=== PATIENT | female | born 1945 | race Caucasian/White ===

== ENCOUNTER → 2016-10-21 | Outpatient (CLI) | payer MEDICARE, OTHER ==
[~2016-10-21] MED LIST: FENO134C PO; IOHEXOL 180 MG/ML 10 ML VIAL. ONE; SIMV20TA3 PO; methylPREDNISolone ACETATE 40 MG/ML VIAL. ONE; methylPREDNISolone ACETATE 80 MG/ML VIAL. ONE
--- NOTE | 2016-10-22 04:57 | PAIN ---
DATE OF SERVICE: 10/21/2016 INITIAL CONSULTATION FOR PAIN CLINIC CHIEF COMPLAINT: Low back and bilateral lower extremity pain. HISTORY OF PRESENT ILLNESS: This is a 71-year-old female who presents with history of pain at the low back and bilateral lower extremities, worse since the year 1999. She has had undergone a lumbar instrumentation and fusion in 2007 with good results initially, but the pain is returning now in the low back, bilateral lower extremities, mostly in the posterior aspect of the gluteus and thigh, essentially equal on the right and the left. The patient reports it is worse with standing, walking, activities, work in her garden, changing positions, standing on ladders. The patient reports it does not awaken her from sleep at night, though feels much better lying down, does not affect her bowel or bladder control, but does affect her ability to walk, is becoming more fatigability in the low back and lower extremities with walking. The patient reports the pain is stabbing and burning with radiating pain into the lower extremities again as noted. The patient has had physical therapy, which is ongoing at the present time as well as chiropractic treatment and always doing exercises on her own in gym as well as at home and outdoors when the weather is good. The patient has been taking tramadol, which does decrease the pain by about 20-30%. She has been taking this for several years. The patient had MRI scan showing arthritis. CT scan showing endplate sclerosis T11-T12 and T12-L1 with subluxation of T12 and L1, but also with L5-S1 progressive degenerative change and development of a 7-mm spondylolisthesis of L5 on S1 with moderate central canal stenosis and lateral recess narrowing at L5-S1 with severe right foraminal stenosis as well. The patient rates her disability rate from 0 to 10, 10 being the worst is a 5 with family and home responsibilities, 6 with recreation and social activities, 7 with occupation, 4 with self-care and 3 with life support activities. PAST MEDICAL HISTORY: Significant for cataract, colitis, skin cancers, gastroesophageal reflux, arthritis, osteoporosis, headaches. PAST SURGICAL HISTORY: Previous surgeries include spinal fusion in 2007, heel spur removed in the past, bilateral rotator cuff surgeries, malignant melanoma excised, bilateral carpal tunnel repair, small toe fracture surgery and a sinus surgery in the past. CURRENT MEDICATIONS: Include simvastatin and fenofibrate. ALLERGIES: THE PATIENT IS ALLERGIC TO VICODIN. FAMILY HISTORY: Significant for osteoarthritis, neuropathy, skin cancers and lumbar issues in patient's father and 4 other siblings. SOCIAL HISTORY: The patient drinks about one alcoholic drink twice a month. Does not smoke. Lives in [place], [place] in her own home. REVIEW OF SYSTEMS: The patient's review of systems is positive for those items mentioned in history of present illness. All systems were reviewed and otherwise negative. It is complete, full and well documented on the patient's chart. PHYSICAL EXAMINATION: VITAL SIGNS: The patient's blood pressure is 155/84, pulse 73, respirations are 18, temperature 98.0 degrees Fahrenheit, height is 5 feet 4 inches, weight is 163 pounds. GENERAL: The patient is awake, alert, oriented, appropriate, very pleasant demeanor. HEENT: Shows normocephalic, atraumatic. Extraocular movements are intact and symmetrical. Oral cavity shows mucous membranes are moist and pink. Dentition is intact. NECK: Shows anterior throat supple without palpable lymphadenopathy noted. Swallow reflex is symmetrical. Neck shows full rotational motion of the cervical spine without difficulty or tenderness. CHEST: Shows normal on inspection. Breath sounds are clear to auscultation bilaterally. HEART: Shows S1 and S2 clear. ABDOMEN: Soft, nontender, nondistended. No palpable organomegaly. No rebound or guarding demonstrated. BACK: The patient's back shows spine grossly midline. Normal appearing thoracic kyphosis. Lumbar lordotic curvature is mildly flattened with well-healed surgical scarring noted. Lumbar paraspinous musculature shows some moderate tenderness with palpation bilaterally in the lumbar distribution, but without significant atrophy, hypertrophy or radiation. No tenderness over the sacrum or sacroiliac regions. The patient does show good rotational motion of lumbar spine, both laterally greater than 10 degrees right and left as well as the extension greater than 10 degrees, forward flexion 45 degrees without significant pain reported. Lower extremities showed deep tendon reflexes at 1+ and the patellar and tendo calcaneus tendons are equal. Motor exam is approximately 4 on a scale of 5, but equal and symmetrical with dorsiflexion, extension, quadriceps and hamstring flexion. Peripheral pulses are 1+ posterior tibial and dorsalis pedis pulses. No peripheral edema is noted. No clubbing, no cyanosis. Lower extremities are warm and dry to touch, equal in color and appearance. The patient's straight leg raising is negative bilaterally. Sharp and dull discrimination is significantly blunted, however, over the left foot completely in stocking type distribution compared to the right, which is intact for the most part. Significant decrease in sharp and dull discrimination to about 10 cm superior to the ankle and the malleoli. The patient is able to stand, stand on her toes without significant difficulty or loss of balance. She walks with a normal appearing gait for short distance in the office today, not using any assistive devices such as canes or walkers to ambulate. IMPRESSION: This is a 71-year-old female with: 1. Long history of low back pain status post lumbar fusion in 2007, now significant pain in low back, bilateral lower extremities. 2. CT scan of the spine as noted. 3. History of arthritis. PLAN: Options were discussed with the patient including conservative medical management, physical therapy and interventional technique. She would like to pursue interventional techniques. We discussed the caudal approach epidural steroid injection using description as well as anatomical models to describe the procedure. Risks were then discussed including, but not limited to bleeding, infection, possibility of epidural hematoma and subsequent neurologic compromise, dural puncture, headaches, spinal cord and/or nerve damage, side effects of steroid medication and poor results regarding pain control. The patient understands and wishes to proceed. The patient will return to the clinic in approximately 2 weeks for followup, was counseled on return appointment, activity level and side effects to be aware of. DIAGNOSES: Lumbar radiculopathy with lumbar spinal stenosis and post-lumbar laminectomy syndrome with degenerative disk disease. PROCEDURE: Caudal approach epidural steroid injection with fluoroscopic guidance under sterile prep and drape and using local anesthetic. MEDICATIONS INJECTED: 120 mg Depo-Medrol plus 10 mL of preservative-free normal saline and 2 mL of Isovue contrast. CONDITION AT DISCHARGE: Stable. The patient tolerated the procedure well, had no complications. JULISSA CALL MD DR: DIONI/[facility] JOB#: [id number] / [id number]
== END | disposition home or self-care (01) ==
LOC: PNCL 12:46
PROVIDERS: ATTEND Neurological Surgery
DX: M54.16 Radiculopathy, lumbar region (principal)
CPT/HCPCS: 62323; J1030; J1040

== ENCOUNTER → 2017-03-19 | Outpatient (CLI) | payer MEDICARE ==
[~2017-03-19] MED LIST changes: +BUPIVACAINE MPF 0.25% 10 ML VIAL. ONE; -methylPREDNISolone ACETATE 40 MG/ML VIAL. ONE
--- NOTE | 2017-03-20 02:32 | PAIN ---
DATE OF SERVICE: 03/19/2017 DIAGNOSES: Lumbar radiculopathy with lumbar spinal stenosis and post lumbar laminectomy syndrome with lumbar spondylosis. HISTORY OF PRESENT ILLNESS: The patient is a 71-year-old female who returns for followup status post caudal epidural steroid injection on 10/21/2016. The patient reports she only had minimal decrease in pain and ____ herself very uncomfortable. She only had a few days of pain relief and the pain returned fairly significantly in low back and into the right hip. The patient reports it does awaken her from sleep occasionally, but she usually feels better lying down. She sleeps 8 hours at night mostly. She has some increased pain with walking and standing ____ 10 on a scale of 10. The patient reports it as aching, dull, shooting, sharp and painful in the right posterior hip and into the posterior gluteus and thigh. The patient reports no new motor or sensory deficits, no new bowel or bladder incontinence or other complaints. PHYSICAL EXAMINATION: VITAL SIGNS: Today, the patient's blood pressure 126/80, pulse 72, respirations 18, temperature 98.2 degrees Fahrenheit, height is 5 feet 1 inch, weight 163 pounds. GENERAL: The patient is awake, alert, oriented, appropriate, very pleasant demeanor. HEENT: Head shows normocephalic and atraumatic. Extraocular movements are symmetrical. Oral cavity, mucous membranes are moist and pink. Dentition is intact. NECK: Shows anterior throat supple without palpable lymphadenopathy noted. Swallow reflex is symmetrical. CHEST: Shows normal on inspection. Breath sounds are clear to auscultation bilaterally. HEART: Shows S1 and S2 clear. No murmurs auscultated. ABDOMEN: Obese, soft, nontender, nondistended. No palpable organomegaly is noted. BACK: Shows spine grossly midline. Well-healed surgical scarring. No flattening of lumbar lordotic curvature, extensive surgical scarring is noted. The patient's lumbar paraspinous muscle shows some moderate tenderness to palpation diffusely throughout the upper, middle and lower distribution, but symmetrical with normal muscle girth with palpation and firm musculature. The patient shows good rotational motion with some pain reported with extension, but not with forward flexion of lumbar spine, 10 degree and 45 degrees respectively. EXTREMITIES: Lower extremities showed deep tendon reflexes 1+ in the patellar and tendo calcaneus tendons. Motor exam is approximately 4 on a scale of 5, but equal and symmetrical with dorsiflexion, extension bilaterally. Options were discussed with the patient and the patient's old chart was reviewed as her current medication regimen updated. Current review of systems updated today as well. We will proceed with right-sided L5-S1 facet joint injection. Risks were discussed including but not limited to bleeding, infection, possibility of epidural hematoma, subsequent neurologic compromise, dural puncture, headaches, spinal cord and/or nerve damage, side effects of steroid medication and poor results regarding pain control. The patient understands and wishes to proceed. The patient will return to clinic in approximately 2 for followup. She was counseled as to activity levels as well as side effects to be aware of. DIAGNOSIS: Lumbar spondylosis with lumbar spinal stenosis and post-lumbar laminectomy syndrome. PROCEDURE: Right-sided L5-S1 facet joint injection with C-arm fluoroscopic guidance under sterile prep and drape using local anesthetic. MEDICATIONS INJECTED: A total of 80 mg Depo-Medrol plus a total of 1 mL of 0.25% bupivacaine with negative aspiration, also 0.5 mL of Isovue for contrast. CONDITION AT DISCHARGE: Stable. The patient tolerated procedure well, had no complications. JULISSA CALL MD DR: DION[facility] JOB#: [id number] / [id number]
== END | disposition home or self-care (01) ==
LOC: PNCL 12:57
PROVIDERS: ATTEND Anesthesiology
DX: M47.816 Spondylosis without myelopathy or radiculopathy, lumbar region (principal); M48.06 Spinal stenosis, lumbar region; M96.1 Postlaminectomy syndrome, not elsewhere classified
CPT/HCPCS: 64493; J1040; J3490